=== PATIENT | female | born 1970 | race Caucasian/White ===

== ENCOUNTER 2017-04-30 09:02 | Emergency (ER) | payer OTHER ==
[2017-04-30 09:40] VITALS: BP 130/72
--- NOTE | 2017-04-30 10:20 | UC ---
Respiratory Complaint HPI - HPI Summary HPI Summary: cough x 1 week + chest congestion , wheezing , + nasal congestion and bilateral ear pain no fever, no chills, no sob - History of Current Complaint Chief Complaint: UCRespiratory Stated Complaint: COUGH WHEEZY Time Seen by Provider: 04/30/17 10:12 Hx Obtained From: Patient Hx Last Menstrual Period: now ?: No Onset/Duration: Gradual Onset, Lasting Days - 7, Still Present Timing: Constant Severity Initially: Moderate Severity Currently: Moderate Character: Cough: Nonproductive Aggravating Factors: Exertion, Deep Breaths Alleviating Factors: Nothing Associated Signs And Symptoms: Positive: Wheezing, URI, Nasal Congestion. Negative: Fever, Chills, Pleuritic Chest Pain, Dizziness, Calf Pain, Calf Swelling, Edema, Hoarseness - Allergies/Home Medications Allergies/Adverse Reactions: Allergies Allergy/AdvReac Type Severity Reaction Status Date / Time Azithromycin [From Zithromax] Allergy Intermediate Rash Verified 04/30/17 09:40 Iodine Allergy Intermediate Rash Verified 04/30/17 09:40 Penicillins Allergy Intermediate Rash Verified 04/30/17 09:40 Ciprofloxacin [From Cipro] Allergy Rash Verified 04/30/17 09:40 avoids NSAIDS AdvReac See Comment Uncoded 04/30/17 09:44 PMH/Surg Hx/FS Hx/Imm Hx Respiratory History: Asthma - Surgical History Surgical History: Yes Surgery Procedure, Year, and Place: tubal ligation 2003 - Family History Known Family History: Positive: Hypertension, Diabetes - Social History Alcohol Use: None Substance Use Type: None Smoking Status (MU): Light Every Day Tobacco Smoker Type: Cigarettes Amount Used/How Often: 1/2 PPD Length of Time of Smoking/Using Tobacco: 29 Years Have You Smoked in the Last Year: Yes Household Exposure Type: Cigarettes Review of Systems Constitutional: Negative Skin: Negative Eyes: Negative ENT: Ear Ache, Nasal Discharge Respiratory: Cough Cardiovascular: Negative Is Patient Immunocompromised?: No All Other Systems Reviewed And Are Negative: Yes Physical Exam Triage Information Reviewed: Yes Appearance: Well-Appearing, No Pain Distress, Well-Nourished Vital Signs: Initial Vital Signs Temp 97.9 F 04/30/17 09:32 Pulse 86 04/30/17 09:32 Resp 18 04/30/17 09:32 BP 130/72 04/30/17 09:32 Pulse Ox 98 04/30/17 09:32 Vital Signs Reviewed: Yes Eyes: Positive: Conjunctiva Clear ENT: Positive: Normal ENT inspection, Hearing grossly normal, Nasal congestion, TMs normal Neck: Positive: Supple, Nontender, No Lymphadenopathy Respiratory: Positive: Chest non-tender, Wheezing Cardiovascular: Positive: RRR, No Murmur, Pulses Normal Abdominal Exam: Normal Abdomen Description: Positive: Nontender, Soft. Negative: Distended, Guarding Bowel Sounds: Positive: Present Skin Exam: Normal UC Diagnostic Evaluation - Laboratory O2 Sat by Pulse Oximetry: 98 Respiratory Course/Dx - Differential Dx/Diagnosis Provider Diagnoses: Bronchitis Discharge - Discharge Plan Condition: Stable Disposition: HOME Prescriptions: Albuterol HFA INHALER* [Ventolin HFA Inhaler*] 2 puff INH Q6H PRN #1 mdi PRN Reason: Wheezing Benzonatate [TESSALON 200 MG CAP] 200 mg PO Q8H #21 cap predniSONE TAB* [Deltasone TAB*] 40 mg PO DAILY #10 tab Patient Education Materials: Acute Bronchitis (ED) Referrals: Adam Sanchez MD [Primary Care Provider] - If Needed
== END 2017-04-30 10:28 | disposition home or self-care (01) ==
LOC: UCCORT 09:02
DX: J40 Bronchitis, not specified as acute or chronic (principal); F17.210 Nicotine dependence, cigarettes, uncomplicated; Z88.1 Allergy status to other antibiotic agents; Z88.0 Allergy status to penicillin; Z91.048 Other nonmedicinal substance allergy status
CPT/HCPCS: 99212; G0463

== ENCOUNTER 2017-06-25 15:21 | Emergency (ER) | payer OTHER ==
[2017-06-25 16:07] VITALS: BP 126/67
--- NOTE | 2017-06-25 17:24 | UC ---
Throat Pain/Nasal Charles HPI - HPI Summary HPI Summary: ONE WEEK OF SINUS CONGESTION, COUGH AND WHEEZING. FEVER. - History of Current Complaint Hx Obtained From: Patient Hx Last Menstrual Period: 06/25/17 Onset/Duration: Gradual Onset, Lasting Weeks Severity: Moderate Pain Intensity: 2 Pain Scale Used: 0-10 Numeric Cough: Nonproductive Associated Signs & Symptoms: Positive: Hoarseness, Sinus Discomfort, Nasal Discharge, Fever - Epiglottits Risk Factors Epiglottis Risk Factors: Negative <Liu Topete - Last Filed: 06/25/17 17:19> <Tg Hodge - Last Filed: 06/25/17 17:39> - History of Current Complaint Chief Complaint: UCGeneralIllness Stated Complaint: [place]EN GLANDS, SINUS CONGESTION Time Seen by Provider: 06/25/17 16:24 - Allergies/Home Medications Allergies/Adverse Reactions: Allergies Allergy/AdvReac Type Severity Reaction Status Date / Time Azithromycin [From Zithromax] Allergy Intermediate Rash Verified 06/25/17 15:57 Iodine Allergy Intermediate Rash Verified 06/25/17 15:57 Penicillins Allergy Intermediate Rash Verified 06/25/17 15:57 Ciprofloxacin [From Cipro] Allergy Rash Verified 06/25/17 15:57 avoids NSAIDS AdvReac See Comment Uncoded 06/25/17 15:57 Home Medications: Home Medications Sertraline HCl [Zoloft] 75 mg PO DAILY 06/25/17 [History Confirmed 06/25/17] PMH/Surg Hx/FS Hx/Imm Hx Previously Healthy: Yes - Surgical History Surgical History: Yes Surgery Procedure, Year, and Place: tubal ligation 2003 - Family History Known Family History: Positive: Hypertension, Diabetes - Social History Occupation: Works From/At Home Lives: With Family Alcohol Use: None Substance Use Type: None Smoking Status (MU): Light Every Day Tobacco Smoker Type: Cigarettes Amount Used/How Often: 1/2 PPD Length of Time of Smoking/Using Tobacco: 29 Years Have You Smoked in the Last Year: Yes Household Exposure Type: Cigarettes Cessation Counseling: Patient Advised to Stop - Immunization History Most Recent Influenza Vaccination: 2015 <Liu Topete - Last Filed: 06/25/17 17:19> Review of Systems Constitutional: Fever Skin: Negative Eyes: Negative ENT: Sinus Congestion, Sinus Pain/Tenderness Respiratory: Cough Cardiovascular: Negative Gastrointestinal: Negative Genitourinary: Negative Motor: Negative Neurovascular: Negative Musculoskeletal: Negative Neurological: Negative Psychological: Negative Is Patient Immunocompromised?: No All Other Systems Reviewed And Are Negative: Yes <Liu Topete - Last Filed: 06/25/17 17:19> Physical Exam Triage Information Reviewed: Yes Appearance: Well-Appearing, No Pain Distress, Well-Nourished Vital Signs: Initial Vital Signs Temp 99 F 06/25/17 16:00 Pulse 102 06/25/17 16:00 Resp 20 06/25/17 16:00 BP 126/67 06/25/17 16:00 Pulse Ox 98 06/25/17 16:00 Vital Signs Reviewed: Yes Eye Exam: Normal ENT: Positive: Pharynx normal, TM bulging, TM dull Dental Exam: Normal Neck exam: Normal Neck: Positive: Supple, Nontender Respiratory Exam: Other - COUGH Respiratory: Positive: Chest non-tender, Normal breath sounds, No accessory muscle use, Wheezing Cardiovascular Exam: Normal Cardiovascular: Positive: RRR, No Murmur, Pulses Normal Abdominal Exam: Normal Musculoskeletal Exam: Normal Musculoskeletal: Positive: Strength Intact, ROM Intact Neurological Exam: Normal Psychological Exam: Normal Skin Exam: Normal <Liu Topete - Last Filed: 06/25/17 17:19> Vital Signs: Initial Vital Signs Temp 99 F 06/25/17 16:00 Pulse 102 06/25/17 16:00 Resp 20 06/25/17 16:00 BP 126/67 06/25/17 16:00 Pulse Ox 98 06/25/17 16:00 <Tg Hodge - Last Filed: 06/25/17 17:39> Throat Pain/Nasal Course/Dx - Differential Dx/Diagnosis Differential Diagnosis/HQI/PQRI: Sinusitis, URI Provider Diagnoses: SINUSITIS; BRONCHITIS <Liu Topete - Last Filed: 06/25/17 17:19> Discharge <Liu Topete - Last Filed: 06/25/17 17:19> <Tg Hodge - Last Filed: 06/25/17 17:39> - Discharge Plan Condition: Stable Disposition: HOME Prescriptions: Albuterol HFA INHALER* [Ventolin HFA Inhaler*] 1 - 2 puff INH Q6H PRN #1 mdi PRN Reason: Wheezing DOXYcycline CAP(*) [DOXYcycline 100MG CAP(*)] 100 mg PO BID #20 cap Patient Education Materials: Sinusitis (ED), Acute Bronchitis (ED) Referrals: Adam Sanchez MD [Primary Care Provider] - Additional Instructions: IN ADDITION TAKE [id number] RANITIDINE DIRECTED , DAILY FOR TEN DAYS Attestation Statement User Type: Provider - I was available for consult. This patient was seen by the JACOBY. The patient was not presented to, seen by, or examined by me. -Roby <Tg Hodge - Last Filed: 06/25/17 17:39>
== END 2017-06-25 16:40 | disposition home or self-care (01) ==
LOC: UCEAST 15:21
DX: J32.9 Chronic sinusitis, unspecified (principal); J40 Bronchitis, not specified as acute or chronic; F17.210 Nicotine dependence, cigarettes, uncomplicated
CPT/HCPCS: 99212; G0463

== ENCOUNTER 2017-06-26 19:45 | Emergency (ER) | payer OTHER ==
[2017-06-26 19:51] VITALS: BP 135/86
--- NOTE | 2017-06-26 21:00 | RAD ---
Indication: Difficulty swallowing. CT of the soft tissues of the neck was performed. There is no evidence of prevertebral soft tissue swelling. Tonsillar pillars are grossly unremarkable. No prevertebral abscess is noted. Submandibular and parotid glands are otherwise unremarkable. Lymph nodes are noted along the carotid chain measuring up to 12 mm on the right and 9 mm on the left. The lung apices are otherwise unremarkable. IMPRESSION: No evidence of prevertebral soft tissue swelling or abscess is noted.
--- NOTE | 2017-06-26 21:40 | ED ---
Neck Pain - HPI Summary HPI Summary: 47 YO F WITH DX SINUSITIS, ON DOXYCYCLINE X 1 DAY WITH C/O SORE THROAT/PAIN WITH SWALLOWING. THE LOCATION OF THE PAIN IS LOWER ANTERIOR MID LINE NECK. NO SOB. VOICE MILDLY HOARSE. - History of Current Complaint Chief Complaint: UCRespiratory Stated Complaint: THROAT PAIN Time Seen by Provider: 06/26/17 20:02 Hx Obtained From: Patient, Family/Whiskey Regauger Hx Last Menstrual Period: NOW Onset/Duration Of Injury/Symptoms: Days Timing: Constant Onset/Duration: Started days ago Severity Initially: Mild Severity Currently: Moderate Location: Discrete At: - LOWER MID LINE ANTERIOR THROAT Aggravating Factors: Other: - SWALLOWING Related History: Other - ALSO HAS ACTIVE GERD SX - Allergies/Home Medications Allergies/Adverse Reactions: Allergies Allergy/AdvReac Type Severity Reaction Status Date / Time Azithromycin [From Zithromax] Allergy Intermediate Rash Verified 06/26/17 19:51 Iodine Allergy Intermediate Rash Verified 06/26/17 19:51 Penicillins Allergy Intermediate Rash Verified 06/26/17 19:51 Ciprofloxacin [From Cipro] Allergy Rash Verified 06/26/17 19:51 avoids NSAIDS AdvReac See Comment Uncoded 06/25/17 15:57 Home Medications: Home Medications Ranitidine TAB (NF) [Zantac TAB (NF)] 150 mg PO DAILY 06/26/17 [History Confirmed 06/26/17] PMH/Surg Hx/FS Hx/Imm Hx Endocrine/Hematology History: Denies: Other Endocrine/Hematological Disorders Cardiovascular History: Denies: Hx Hypertension, Other Cardiovascular Problems/Disorders Respiratory History: Reports: Hx Asthma Denies: Other Respiratory Problems/Disorders GI History: Denies: Other GI Disorders History: Denies: Other Problems/Disorders Musculoskeletal History: Denies: Other Musculoskeletal History Sensory History: Denies: Other Sensory Impairments Opthamlomology History: Denies: Other Sensory Impairments Neurological History: Denies: Other Neuro Impairments/Disorders Psychiatric History: Reports: Hx Anxiety, Hx Depression, Hx Panic Disorder Denies: Other Psychiatric Issues/Disorders - Surgical History Surgery Procedure, Year, and Place: 3 C-SECTIONS, TUBAL LIGATION 2003 Infectious Disease History: No Infectious Disease History: Denies: History Other Infectious Disease, Traveled Outside the [place] in Last 30 Days - Family History Known Family History: Positive: Hypertension, Diabetes - Social History Alcohol Use: None Substance Use Type: Reports: None Smoking Status (MU): Current Every Day Smoker Type: Cigarettes Amount Used/How Often: 1/2 PPD Length of Time of Smoking/Using Tobacco: 29 Years Have You Smoked in the Last Year: Yes Review of Systems Positive: Other - SINUSITIS Eyes: Negative Positive: Sore Throat Cardiovascular: Negative Respiratory: Negative Genitourinary: Negative Musculoskeletal: Negative Skin: Negative Neurological: Negative Psychological: Normal All Other Systems Reviewed And Are Negative: Yes Physical Exam Triage Information Reviewed: Yes Vital Signs On Initial Exam: Initial Vitals Temp Pulse Resp BP Pulse Ox 97.7 F 120 16 135/86 97 06/26/17 19:46 06/26/17 19:46 06/26/17 19:46 06/26/17 19:46 06/26/17 19:46 Vital Signs Reviewed: Yes Appearance: Positive: Well-Appearing, Pain Distress - MILD WITH SWALLOWING Skin: Positive: Warm, Skin Color Reflects Adequate Perfusion Head/Face: Positive: Normal Head/Face Inspection Eyes: Positive: Normal, EOMI, JT ENT: Positive: Pharyngeal erythema, Nasal congestion, Other - OROPHARYX OPEN Neck: Positive: Supple, Enlarged Nodes @ - ANTERIOR, Other: - MILDLY TENDER LOWER MIDLINE OF NECK. NO MASS PALPATED Respiratory/Lung Sounds: Positive: Clear to Auscultation Cardiovascular: Positive: Normal, Tachycardia Abdomen Description: Positive: Nontender Musculoskeletal: Positive: Normal Neurological: Positive: Normal Psychiatric: Positive: Normal AVPU Assessment: Alert Diagnostics - Vital Signs Vital Signs Temp Pulse Resp BP Pulse Ox 06/26/17 19:46 97.7 F 120 16 135/86 97 - Laboratory Lab Results: Lab Results 06/26/17 Range/Units 19:46 Group A Strep Rapid Negative (Negative) Lab Statement: Any lab studies that have been ordered have been reviewed, and results considered in the medical decision making process. Neck Course/Dx - Course Course Of Treatment: TWO POSSIBLE CAUSES OF THE PAIN MAY BE FROM THE SINUS INFECTION OR GERD. PATIENT ON DOXY FOR SINUSITIS. ON PPI AND RANITIDINE FOR GERD. WILL ADD CARAFATE. RECOMMENDED COUGH MEDICATION FOR COUGH. DISCUSSED RESULTS WITH PATIENT. F/U PMD; RETURN IF WORSE. - Diagnoses Provider Diagnoses: Neck pain, Cough Discharge - Discharge Plan Condition: Stable Disposition: HOME Prescriptions: Sucralfate TAB* [Carafate*] 1 gm PO QID #60 tab Patient Education Materials: Dextromethorphan (By mouth), Pharyngitis (ED) Referrals: Adam Sanchez MD [Primary Care Provider] - Additional Instructions: FOLLOW UP WITH YOUR DOCTOR. TRY A COUGH SUPPRESSANT SUCH ROBITUSSIN DM. GET RECHECKED FOR ANY WORSENING OF YOUR CONDITION; DIFFICULTY SWALLOWING OR BREATHING OR QUESTIONS OR CONCERNS.
== END 2017-06-26 21:47 | disposition home or self-care (01) ==
LOC: UCEAST 19:45
DX: M54.2 Cervicalgia (principal); R05 Cough; J02.9 Acute pharyngitis, unspecified; J45.909 Unspecified asthma, uncomplicated; Z88.1 Allergy status to other antibiotic agents; Z88.0 Allergy status to penicillin; F41.0 Panic disorder [episodic paroxysmal anxiety]; F32.9 Major depressive disorder, single episode, unspecified; F17.210 Nicotine dependence, cigarettes, uncomplicated
CPT/HCPCS: 70490; 87651; 99212; G0463

== ENCOUNTER 2018-03-03 15:01 | Emergency (ER) | payer OTHER ==
[2018-03-03 15:19] VITALS: BP 131/79
--- NOTE | 2018-03-03 15:45 | UC ---
Cardiac HPI - HPI Summary HPI Summary: The pt is a 47 y/o female presenting to c/o CP since 2 days ago. The CP is rated 9/10 in severity at its worst and radiates to the L arm. She notes nausea and burning epigastric pain that radiates to the chest and under the L breast. She also reports flatulence, and lower back pain (1 night ago.) The pt denies dysuria and melena . She has a PMHx GERD and borderline HLD for which she takes fish oil but denies MHx of HTN or DM. This is scribe Kim Kapoor documenting for attending Dr. Howard Alford.I , Dr. Howard Alford personally performed the services described in this documentation as scribed in my presence and it is both accurate and complete. - History of Current Complaint Chief Complaint: UCChestPain Stated Complaint: ABDOMINAL PAIN Time Seen by Provider: 03/03/18 15:28 Hx Obtained From: Patient Hx Last Menstrual Period: 03/01/18 Onset/Duration: Lasting Days - 2 days, Still Present Initial Severity: Severe Current Severity: Severe Pain Intensity: 9 Associated Signs & Symptoms: Positive: Negative, Chest Pain, Nausea/Vomiting - Positive: Nausea, Back Pain - Lower back pain 1 day ago - Allergy/Home Medications Allergies/Adverse Reactions: Allergies Allergy/AdvReac Type Severity Reaction Status Date / Time azithromycin Allergy Rash Verified 03/03/18 15:27 ciprofloxacin Allergy Rash Verified 03/03/18 15:27 iodine Allergy Rash Verified 03/03/18 15:27 Penicillins Allergy Rash Verified 03/03/18 15:27 avoids NSAIDS AdvReac See Comment Uncoded 03/03/18 15:27 Home Medications: Home Medications Acetaminophen [Extra Strength Non-Aspirin] 1,000 mg PO Q6H PRN 03/03/18 [ History Confirmed 03/03/18] [place]-3 Fatty Acids/Fish Oil [Fish Oil 1200 mg] 1 cap PO DAILY 03/03/18 [ History Confirmed 03/03/18] Vit B Cplx C No.13/Folic AC/D3 [Nephrocaps Qt] 1 tab PO DAILY 03/03/18 [History Confirmed 03/03/18] PMH/Surg Hx/FS Hx/Imm Hx Previously Healthy: No - Denies PMHx of HTN and DM Endocrine History: Dyslipidemia - Borderline HLD GI/ History: Gastroesophageal Reflux - Takes medication for it - Surgical History Surgical History: Yes Surgery Procedure, Year, and Place: 3 C-SECTIONS, TUBAL LIGATION 2003 - Family History Known Family History: Positive: Hypertension, Diabetes - Social History Occupation: Unemployed Lives: With Family Alcohol Use: None Substance Use Type: None Smoking Status (MU): Light Every Day Tobacco Smoker Type: Cigarettes Amount Used/How Often: 1/2 PPD Length of Time of Smoking/Using Tobacco: 29 Years Have You Smoked in the Last Year: Yes Household Exposure Type: Cigarettes - Immunization History Most Recent Influenza Vaccination: 2016 Review of Systems Constitutional: Negative - Fever Respiratory: Other - Positive: Chest pain Gastrointestinal: Abdominal Pain - Epigastric pain, Nausea, Other - Positive: Flatulance Genitourinary: Negative - Dysuria, Melena Musculoskeletal: Other: - Positive: Lower back pain All Other Systems Reviewed And Are Negative: Yes Physical Exam - Summary Physical Exam Summary: General: well-appearing, no pain distress Skin: warm, color reflects adequate perfusion, dry Head: normal Eyes: EOMI, JT ENT: normal Neck: supple, nontender Respiratory: CTA, breath sounds present Cardiovascular: RRR Abdomen: soft, mild tenderness to palpation in the epigastrium Bowel: present Musculoskeletal: normal, strength/ROM intact, no edema Neurological: sensory/motor intact, A&O x3 Psychological: affect/mood appropriate Triage Information Reviewed: Yes Vital Signs: Initial Vital Signs Temp 97.7 F 03/03/18 15:12 Pulse 101 03/03/18 15:12 Resp 16 03/03/18 15:12 BP 131/79 03/03/18 15:12 Pulse Ox 97 03/03/18 15:12 Vital Signs Reviewed: Yes Diagnostics - EKG EKG Comments: 15:49 Cardiac Rate: NL - 85 bpm Cardiac Rhythm: Sinus: Normal Ectopy: None ST Segment: Normal Re-Evaluation - Re-Evaluation First Eval Re-Evaluation Time: 16:30 Change: Improved - The patient was advised to visit the emergency department for follow up. The patient is agreeable with this plan. - Assessment/Plan Course Of Treatment: EKG did not show any ischemic changes. I recommended the patient go to the emergency department for further evaluation now for her chest pain and upper abdominal pain. - Clinical Impression Provider Diagnoses: Chest pain. Upper abdominal pain Discharge - Sign-Out/Discharge Documenting (check all that apply): Patient Departure - Discharge Plan Condition: Stable Disposition: HOME-RECOMMEND TO ED Patient Education Materials: Chest Pain (ED), Acute Abdominal Pain (ED) Referrals: Adam Sanchez MD [Primary Care Provider] - Additional Instructions: GO DIRECTLY TO THE EMERGENCY DEPARTMENT FOR FURTHER EVALUATION OF YOUR CHEST AND ABDOMINAL PAIN. - Billing Disposition and Condition Condition: STABLE Disposition: Home-Recommend to ED
== END 2018-03-03 16:13 | disposition home health service (06) ==
LOC: UCEAST 15:01
DX: R07.89 Other chest pain (principal); R10.13 Epigastric pain; K21.9 Gastro-esophageal reflux disease without esophagitis; Z88.6 Allergy status to analgesic agent; Z88.1 Allergy status to other antibiotic agents; Z88.3 Allergy status to other anti-infective agents; Z88.0 Allergy status to penicillin; Z82.49 Family history of ischemic heart disease and other diseases of the circulatory system; Z83.3 Family history of diabetes mellitus; F17.210 Nicotine dependence, cigarettes, uncomplicated
CPT/HCPCS: 93005; 99211; G0463

== ENCOUNTER → 2018-03-03 17:41 | Emergency (ER) | payer OTHER ==
[~2018-03-03 17:41] MED LIST: Al Hydrox/Mg Hydrox/Simet LIQ* 30 ML UDC PO ONE; Famotidine TAB* 20 MG PO ONE; Lidocaine 2% VISCOUS* 15 ML UDC PO ONE; Nitrofurantoin Macrocrystals* 100 MG CAP PO ONE
[2018-03-03 18:31] LABS: ABS Basophils 0.1 10^3/ul (0-0.2); ABS Eosinophils 0.2 10^3/ul (0-0.6); ABS Monocytes 0.7 10^3/ul (0-0.8); ABS Neutrophils 5.8 10^3/ul (1.5-7.7); ABS Nucleated RBC 0 10^3/ul; Eosinophil % 2.1 % (0-6); Hematocrit 37 % (35-47); Hemoglobin 12.8 g/dl (12.0-16.0); Lymphocyte % 30.4 % (25-47); Mean Corpuscular HGB Conc 35 g/dl (31-36); Mean Corpuscular Hemoglobin 33 pg (27-31); Mean Corpuscular Volume 95 fL (80-97); Mean Platelet Volume 7.6 um3 (7.4-10.4); Nucleated Red Blood Cells % 0; Platelet Count 425 10^3/ul (150-450); Red Blood Count 3.86 10^6/ul (4.00-5.40); Red Cell Distribution Width 14 % (10.5-15); White Blood Count 9.7 10^3/ul (3.5-10.8)
--- NOTE | 2018-03-03 18:32 | ED ---
Abdominal Pain/Female - HPI Summary HPI Summary: This is scribe Zane Sun documenting for attending Sarath Rosado MD. This patient is a 47 year old F presenting to [facility] with a chief complaint of a burning abdominal pain since 2 days ago. She describes it as a weird sensation like a filling feeling that starts in her abdomen, radiating up her chest and down her LUE. The patient rates the pain 5/10 in severity currently. It was a 9/10 in severity at its worse. Patient reports frequent flatulence and pain under my L breast bone. Patient denies nausea, vomiting, diarrhea, and constipation. Patient has a PMHx of HLD but no PMHx of HTN or diabetes. She smokes but does not drink alcohol. She has a PSHx of a . I, Dr. Rosado, personally performed the services described in this documentation as scribed in my presence, and it is both accurate and complete. - History of Current Complaint Chief Complaint: EDChestPainROMI Stated Complaint: ABD/CHEST PAIN Time Seen by Provider: 03/03/18 18:01 Hx Obtained From: Patient Hx Last Menstrual Period: 03/01/18 Onset/Duration: Sudden Onset, Lasting Days - 2 days ago, Still Present Timing: Days - since 2 days ago Severity Initially: Severe Severity Currently: Moderate Pain Intensity: 5 Pain Scale Used: 0-10 Numeric Radiates: Yes Radiates to: Other - radiating up her chest and down her LUE Character: Burning Aggravating Factor(s): Nothing Alleviating Factor(s): Nothing Associated Signs and Symptoms: Positive: Chest Pain, Other: - Frequent flatulence, pain "under my L breast bone". Negative: Constipation, Nausea, Vomiting, Diarrhea Allergies/Adverse Reactions: Allergies Allergy/AdvReac Type Severity Reaction Status Date / Time azithromycin Allergy Rash Verified 03/03/18 15:27 ciprofloxacin Allergy Rash Verified 03/03/18 15:27 iodine Allergy Rash Verified 03/03/18 15:27 Penicillins Allergy Rash Verified 03/03/18 15:27 avoids NSAIDS AdvReac See Comment Uncoded 03/03/18 15:27 Home Medications: Home Medications Albuterol HFA INHALER* [Ventolin HFA Inhaler*] 1 - 2 puff INH Q6H PRN 03/03/18 [ History Confirmed 03/03/18] Pantoprazole TAB (NF) [Protonix TAB (NF)] 40 mg PO QAM 03/03/18 [History Confirmed 03/03/18] Sertraline* [Zoloft*] 100 mg PO DAILY 03/03/18 [History Confirmed 03/03/18] busPIRone TAB* [Buspar TAB *] 15 mg PO QID 03/03/18 [History Confirmed 03/03/18] PMH/Surg Hx/FS Hx/Imm Hx Endocrine/Hematology History: Denies: Hx Thyroid Disease, Other Endocrine/Hematological Disorders Cardiovascular History: Denies: Hx Hypertension, Other Cardiovascular Problems/Disorders Respiratory History: Reports: Hx Asthma Denies: Other Respiratory Problems/Disorders GI History: Denies: Other GI Disorders Comment Only: Hx Ulcer - possible History: Denies: Other Problems/Disorders Musculoskeletal History: Denies: Other Musculoskeletal History Sensory History: Denies: Other Sensory Impairments Opthamlomology History: Denies: Other Sensory Impairments Neurological History: Denies: Other Neuro Impairments/Disorders Psychiatric History: Reports: Hx Anxiety, Hx Depression, Hx Panic Disorder Denies: Other Psychiatric Issues/Disorders - Surgical History Surgery Procedure, Year, and Place: 3 C-SECTIONS, TUBAL LIGATION 2003 Infectious Disease History: No Infectious Disease History: Denies: History Other Infectious Disease, Traveled Outside the [place] in Last 30 Days - Family History Known Family History: Positive: Hypertension, Diabetes - Social History Occupation: Unemployed Lives: With Family Alcohol Use: Rare Substance Use Type: Reports: None Smoking Status (MU): Light Every Day Tobacco Smoker Type: Cigarettes Amount Used/How Often: 1/2 PPD Length of Time of Smoking/Using Tobacco: 29 Years Have You Smoked in the Last Year: Yes Review of Systems Positive: Chest Pain - Pain "under my L breast bone" Positive: Abdominal Pain - A burning abdominal pain since 2 days ago. It is a weird sensation like a filling feeling that starts in her abdomen, radiating up her chest and down her LUE., Other - Frequent flatulence. Denies constipation.. Negative: Vomiting, Diarrhea, Nausea All Other Systems Reviewed And Are Negative: Yes Physical Exam - Summary Physical Exam Summary: VITAL SIGNS: Reviewed. GENERAL: Patient is a well-developed and nourished FEMALE who is lying comfortable in the stretcher. Patient is not in any acute respiratory distress. HEAD AND FACE: No signs of trauma. No ecchymosis, hematomas or skull depressions. No sinus tenderness. EYES: PERRLA, EOMI x 2, No injected conjunctiva, no nystagmus. EARS: Hearing grossly intact. Ear canals and tympanic membranes are within normal limits. MOUTH: Oropharynx within normal limits. NECK: Supple, trachea is midline, no adenopathy, no JVD, no carotid bruit, no c- spine tenderness, neck with full ROM. CHEST: Symmetric, no tenderness at palpation LUNGS: Clear to auscultation bilaterally. No wheezing or crackles. CVS: Regular rate and rhythm, S1 and S2 present, no murmurs or gallops appreciated. ABDOMEN: Epigastric tenderness. No signs of distention. No rebound no guarding, and no masses palpated. Bowel sounds are normal. EXTREMITIES: FROM in all major joints, no edema, no cyanosis or clubbing. NEURO: Alert and oriented x 3. No acute neurological deficits. Speech is normal and follows commands. SKIN: Dry and warm Triage Information Reviewed: Yes Vital Signs On Initial Exam: Initial Vitals Temp Pulse Resp BP Pulse Ox 98.9 F 110 16 122/82 94 03/03/18 17:57 03/03/18 17:57 03/03/18 17:57 03/03/18 17:57 03/03/18 17:57 Vital Signs Reviewed: Yes Diagnostics - Vital Signs Vital Signs Temp Pulse Resp BP Pulse Ox 03/03/18 18:05 93 120/75 96 03/03/18 17:57 98.9 F 110 16 122/82 94 - Laboratory Lab Results: Lab Results 03/03/18 Range/Units 18:22 WBC 9.7 (3.5-10.8) 10^3/ul RBC 3.86 L (4.00-5.40) 10^6/ul Hgb 12.8 (12.0-16.0) g/dl Hct 37 (35-47) % MCV 95 (80-97) fL MCH 33 H (27-31) pg MCHC 35 (31-36) g/dl RDW 14 (10.5-15) % Plt Count 425 (150-450) 10^3/ul MPV 7.6 (7.4-10.4) um3 Neut % (Auto) 59.5 (38-83) % Lymph % (Auto) 30.4 (25-47) % Louisa % (Auto) 7.1 H (0-7) % Eos % (Auto) 2.1 (0-6) % Baso % (Auto) 0.9 (0-2) % Absolute Neuts (auto) 5.8 (1.5-7.7) 10^3/ul Absolute Lymphs (auto) 3.0 (1.0-4.8) 10^3/ul Absolute Monos (auto) 0.7 (0-0.8) 10^3/ul Absolute Eos (auto) 0.2 (0-0.6) 10^3/ul Absolute Basos (auto) 0.1 (0-0.2) 10^3/ul Absolute Nucleated RBC 0 10^3/ul Nucleated RBC % 0 Result Diagrams: 03/03/18 18:22 03/03/18 18:21 Lab Statement: Any lab studies that have been ordered have been reviewed, and results considered in the medical decision making process. - Radiology Abdomen X-Ray Radiology Interpretation Completed By: Radiologist - 19:06. CHOLELITHIASIS. ED Physician has reviewed this imaging report. - CT Abdominal US CT Interpretation Completed By: Radiologist - 21:09. Cholelithiasis without other findings of cholecystitis. ED Physician has reviewed this imaging report. - EKG No standard instances Cardiac Rate: NL - 92 EKG Rhythm: Sinus Rhythm EKG Interpretation: Read 18:20. No ST elevations. Similar to EKG from 11/17/2014 Abdominal Pain Fem Course/Dx - Course Course Of Treatment: This patient is a 47-year-old female who presents to the emergency department with a chief complaint of having epigastric burning with relation to the chest and left upper extremity. She reports that the symptoms started a couple days ago and has become worse therefore she decided to come to the emergency room for further workup and management. Patient has past medical history significant for dyslipidemia on Sharon 3, GERD, depression, and asthma. In the ED the patient was given IV fluids and a GI cocktail. After giving these medications the symptoms have improved. Test results without any significant abnormality. EKG shows no ST elevation. Abdomen x-ray impression: Cholelithiasis. Right upper quadrant ultrasound IMPRESSION: 1. Cholelithiasis without other findings of cholecystitis. Urinalysis positive for UTI. The patient was given nitrofurantoin. At this time the patient is given better therefore the patient will be discharged home with follow-up with PCP. I discussed all the findings and test results with the patient. Patient was instructed to return to the emergency room immediately if any of the symptoms return or worsens. Plan of care was discussed with the patient and understands and agrees. All questions were answered at patient satisfaction. There were no further complaints or concerns. Lung exam before discharge: CTA B/L. Good air exchange. No wheezing or crackles heard. CVS: S1 and S2 present. No murmurs appreciated. Patient is alert and oriented x 3. Patient is hemodynamically stable. Patient will be discharged home with follow up PCP in the next 2-3 days - Diagnoses Provider Diagnoses: Epigastric pain, Cholelithiases, UTI (urinary tract infection) Discharge - Sign-Out/Discharge Documenting (check all that apply): Patient Departure - D/C - Discharge Plan Condition: Stable Disposition: HOME Prescriptions: Nitrofurantoin Macrocrystals* [Macrodantin 100 mg*] 100 mg PO BID #20 cap Patient Education Materials: Biliary Colic (ED), Urinary Tract Infection in Women (ED), Epigastric Pain (ED) Referrals: Adam Sanchez MD [Primary Care Provider] - 3 Days Cristopher Byrd MD [Medical Doctor] - (Follow up with Dr. Byrd within 1 week.) Additional Instructions: RETURN TO THE ED FOR ANY WORSENING OR NEW SYMPTOMS.
--- NOTE | 2018-03-03 19:09 | RAD ---
INDICATION: Abdominal pain COMPARISON: None TECHNIQUE: Erect and supine views of the abdomen are submitted. FINDINGS: Bones: There are no acute bony findings. Soft tissues: The soft tissues appear normal. The psoas margins are sharp. Bowel gas pattern: Normal Calcifications: There are numerous gallstones. Other: None IMPRESSION: CHOLELITHIASIS
[2018-03-03 20:49] LABS: Urine Color Red
[2018-03-03 21:07] LABS: Urine Appearance Cloudy; Urine Blood 3+ (Negative); Urine Ketones Negative (Negative); Urine Protein 2+(100 mg/dL) (Negative); Urine Red Blood Cell 3+(>10/hpf) (Absent); Urine Specific Gravity 1.012 (1.010-1.030); Urine Urobilinogen Negative (Negative); Urine White Blood Cell 3+(>20/hpf) (Absent)
--- NOTE | 2018-03-03 21:09 | RAD ---
EXAM: US Abdomen Limited, Right Upper Quadrant CLINICAL HISTORY: 47 years old, female; Abnormal findings; Abnormal radiologic finding of the abdomen; Radiologic exam and body structure: Abd xray; Additional info: Epigastric pain TECHNIQUE: Real-time ultrasound of the right upper quadrant with image documentation. COMPARISON: No relevant prior studies available. FINDINGS: Liver: The liver is normal in size and increased in echogenicity most consistent with fatty infiltration. There is focal sparing adjacent to the gallbladder. Gallbladder: Multiple gallstones are present. Technologist reports no patient pain when imaged over the gallbladder. Gallbladder wall thickness measures 3 mm. Common bile duct: Common bile duct measures 4 mm. No stones. No dilation. Pancreas: Normal as visualized. Right kidney: Right kidney measures 10.9 x 4.0 x 5.4 cm. No stones. No hydronephrosis. Aorta: Normal. Inferior vena cava: Normal. IMPRESSION: 1. Cholelithiasis without other findings of cholecystitis. 2. Findings suggestive of fatty infiltration of the liver.
[2018-03-03 21:22] LABS: EGFR Non-African American 99.9 (>60)
[2018-03-03 21:57] VITALS: BP 114/60
== END | disposition home or self-care (01) ==
LOC: ED 17:41
DX: K80.20 Calculus of gallbladder without cholecystitis without obstruction (principal); N39.0 Urinary tract infection, site not specified; K21.9 Gastro-esophageal reflux disease without esophagitis; F41.9 Anxiety disorder, unspecified; F32.9 Major depressive disorder, single episode, unspecified; F17.210 Nicotine dependence, cigarettes, uncomplicated; E78.5 Hyperlipidemia, unspecified; J45.909 Unspecified asthma, uncomplicated; Z79.899 Other long term (current) drug therapy; Z88.3 Allergy status to other anti-infective agents; Z88.0 Allergy status to penicillin; Z88.6 Allergy status to analgesic agent; Z88.8 Allergy status to other drugs, medicaments and biological substances
CPT/HCPCS: 36415; 74019; 76705; 80053; 81003; 81015; 83605; 83690; 83880; 84484; 85025; 86140; 87086; 93005; 99283; A9270-GY

== ENCOUNTER 2018-05-19 11:20 | Emergency (ER) | payer OTHER ==
[2018-05-19 11:34] VITALS: BP 127/82
--- NOTE | 2018-05-20 07:50 | UC ---
- Progress Note Progress Note: NO IMAGING Discharge - Sign-Out/Discharge Documenting (check all that apply): Post-Discharge Follow Up All imaging exams completed and their final reports reviewed: No Studies - Discharge Plan Condition: Good Disposition: HOME Prescriptions: Sulfamethox/Trimethoprim DS* [Bactrim DS 800/160 TAB*] 1 tab PO BID #20 tab Patient Education Materials: Cellulitis (ED) Referrals: Adam Sanchez MD [Primary Care Provider] - Additional Instructions: - Warm stiz baths 3+ times a day - Antibitoics as directed - Return with loss of bowel, bladder functions, decreased leg use, increased pain, fever, chills - Motrin/ ibuprofen for pain - Follow up with primary physician within 2-3 days - Billing Disposition and Condition Condition: GOOD Disposition: Home
--- NOTE | 2018-06-09 21:27 | UC ---
Skin Complaint HPI - HPI Summary HPI Summary: 48 y/o female with c/o redness, pain, drainage noted from right side of gluteal cleft, pain increasing over past days, drainage x 24 hours. No fever, chills. + pain with ambulation, no bowel/ bladder dysfunction - History of Current Complaint Chief Complaint: UCGU Time Seen by Provider: 05/19/18 12:18 Stated Complaint: PERSONAL Hx Obtained From: Patient Hx Last Menstrual Period: 03/01/18 Onset/Duration: Sudden Onset, Lasting Days Onset Severity: Moderate Current Severity: Moderate Pain Intensity: 5 Pain Scale Used: 0-10 Numeric - Allergy/Home Medications Allergies/Adverse Reactions: Allergies Allergy/AdvReac Type Severity Reaction Status Date / Time azithromycin Allergy Severe Rash Verified 05/19/18 11:34 ciprofloxacin Allergy Severe Rash Verified 05/19/18 11:34 iodine Allergy Severe Rash Verified 05/19/18 11:34 Penicillins Allergy Severe Rash Verified 05/19/18 11:34 avoids NSAIDS AdvReac See Comment Uncoded 05/19/18 11:34 Review of Systems All Other Systems Reviewed And Are Negative: Yes Constitutional: Positive: Chills Skin: Positive: Other - drainage Gastrointestinal: Positive: Other - pain in buttock area Is Patient Immunocompromised?: No PMH/Surg Hx/FS Hx/Imm Hx Endocrine History: Diabetes - Surgical History Surgical History: Yes Surgery Procedure, Year, and Place: 3 C-SECTIONS, TUBAL LIGATION 2003 - Family History Known Family History: Positive: Hypertension, Diabetes - Social History Alcohol Use: None Substance Use Type: None Smoking Status (MU): Light Every Day Tobacco Smoker Type: Cigarettes Amount Used/How Often: 5 cigs per day for over 20 years Length of Time of Smoking/Using Tobacco: 29 Years Have You Smoked in the Last Year: Yes Household Exposure Type: Cigarettes - Immunization History Most Recent Influenza Vaccination: 2016 Physical Exam Triage Information Reviewed: Yes Appearance: Well-Appearing, No Pain Distress, Well-Nourished Vital Signs: Initial Vital Signs Temp 98.0 F 05/19/18 11:31 Pulse 113 05/19/18 11:31 Resp 18 05/19/18 11:31 BP 127/82 05/19/18 11:31 Pulse Ox 100 05/19/18 11:31 Vital Signs Reviewed: Yes Eyes: Positive: Conjunctiva Clear Abdomen Description: Positive: Nontender, No Organomegaly, Soft Neurological Exam: Normal Skin: Positive: Other - 2x2cm indurated region in gluteal cleft, right sided TTP , white head noted, no drainage, no fluctuant area noted. no involvement with rectum, area marked with skin marker Course/Dx - Course Course Of Treatment: unable to I&D as no abcess seen, abx given, cultures taken , f/u with PCP - Differential Diagnoses - Skin Complaint Differential Diagnoses: Cellulitis, Impetigo - Diagnoses Provider Diagnoses: cellulitis Discharge - Sign-Out/Discharge Documenting (check all that apply): Patient Departure All imaging exams completed and their final reports reviewed: No Studies - Discharge Plan Condition: Good Disposition: HOME Prescriptions: Sulfamethox/Trimethoprim DS* [Bactrim DS 800/160 TAB*] 1 tab PO BID #20 tab Patient Education Materials: Cellulitis (ED) Referrals: Adam Sanchez MD [Primary Care Provider] - Additional Instructions: - Warm stiz baths 3+ times a day - Antibitoics as directed - Return with loss of bowel, bladder functions, decreased leg use, increased pain, fever, chills - Motrin/ ibuprofen for pain - Follow up with primary physician within 2-3 days - Billing Disposition and Condition Condition: GOOD Disposition: Home
== END 2018-05-19 13:00 | disposition home or self-care (01) ==
LOC: UCEAST 11:20
DX: L03.317 Cellulitis of buttock (principal); Z88.6 Allergy status to analgesic agent; Z88.1 Allergy status to other antibiotic agents; Z88.0 Allergy status to penicillin; F17.210 Nicotine dependence, cigarettes, uncomplicated
CPT/HCPCS: 99212; G0463

== ENCOUNTER 2018-08-25 16:40 | Emergency (ER) | payer OTHER ==
[2018-08-25 17:10] VITALS: BP 146/83
[2018-08-25] MEDS ORDERED: Ketorolac INJ* 30 MG/ML 1 ML VIAL IM ONE (17:22)
--- NOTE | 2018-08-30 10:03 | UC ---
Course/Dx - Diagnoses Provider Diagnoses: Dental abscess Discharge - Sign-Out/Discharge Documenting (check all that apply): Post-Discharge Follow Up All imaging exams completed and their final reports reviewed: No Studies - Discharge Plan Condition: Good Disposition: HOME Prescriptions: Clindamycin HCl 300 mg PO TID #30 capsule HYDROcodone/ACETAMIN 5-325 MG* [Guttenberg 5-325 TAB*] 1 tab PO Q4H PRN #15 tab MDD 4 tablets PRN Reason: Pain Patient Education Materials: Dental Abscess (ED) Referrals: Adam Sanchez MD [Primary Care Provider] - Additional Instructions: - Follow up with dentist within 2-3 days for evaluation and further treatment - Continue antibiotics as directed - Warm salt water gargles 3-4 times daily - Tylenol up to 4000mg a day max for pain - Guttenberg as needed for severe pain every 4-6 hours - GO to ER with increased pain, fever, chills, nausea/ vomiting, increased pain , difficulty swallowing - Billing Disposition and Condition Condition: GOOD Disposition: Home
--- NOTE | 2018-09-05 10:20 | UC ---
Dental HPI - HPI Summary HPI Summary: 48 year old female with TOB history presents with swelling, dental pain since this aM. Noted pain, mild, and some swelling last night, woke this mornign with increased swelling on right side of face. no fever, no difficulty with swallowing, breathing. no prior occurence but does have h/o dental infections. - History of Current Complaint Chief Complaint: UCDentalProblem Stated Complaint: SWOLLEN CHEEK Time Seen by Provider: 08/25/18 17:25 Hx Obtained From: Patient Hx Last Menstrual Period: 1 WEEK AGO Pain Intensity: 0 Pain Scale Used: 0-10 Numeric - Allergies/Home Medications Allergies/Adverse Reactions: Allergies Allergy/AdvReac Type Severity Reaction Status Date / Time azithromycin Allergy Severe Rash Verified 08/26/18 12:33 ciprofloxacin Allergy Severe Rash Verified 08/26/18 12:33 iodine Allergy Severe Rash Verified 08/26/18 12:33 Penicillins Allergy Severe Rash Verified 08/26/18 12:33 avoids NSAIDS AdvReac See Comment Uncoded 08/26/18 12:33 Home Medications: Home Medications Cyanocobalamin TAB* [Vitamin B12 TAB*] 1 tab PO DAILY 08/25/18 [History] PMH/Surg Hx/FS Hx/Imm Hx Previously Healthy: No - Surgical History Surgical History: Yes Surgery Procedure, Year, and Place: 3 C-SECTIONS, TUBAL LIGATION 2003, CHOLECYSTECTOMY 2017 - Family History Known Family History: Positive: Hypertension, Diabetes - Social History Alcohol Use: None Substance Use Type: None Smoking Status (MU): Current Every Day Smoker Type: Cigarettes Amount Used/How Often: 5 CIG/DAY Length of Time of Smoking/Using Tobacco: 29 Years Have You Smoked in the Last Year: Yes Household Exposure Type: Cigarettes - Immunization History Most Recent Influenza Vaccination: 2016 Review of Systems All Other Systems Reviewed And Are Negative: Yes ENT: Positive: Dental Pain Musculoskeletal: Positive: Edema Is Patient Immunocompromised?: No Physical Exam Triage Information Reviewed: Yes Appearance: Well-Appearing, No Pain Distress, Well-Nourished Vital Signs: Initial Vital Signs Temp 98.8 F 08/25/18 17:02 Pulse 112 08/25/18 17:02 Resp 16 08/25/18 17:02 BP 146/83 08/25/18 17:02 Pulse Ox 99 08/25/18 17:02 Vital Signs Reviewed: Yes Eyes: Positive: Conjunctiva Clear ENT: Positive: Pharynx normal, TMs normal, Uvula midline. Negative: Pharyngeal erythema, Tonsillar swelling, Tonsillar exudate, Sinus tenderness Dental: Positive: Gross Decay/Caries @ - multiple, Dental Fracture @ - multiple , Cervical Lymphadenopathy - l sided, Other: - erythema noted voer upper left gingiva with no drainage noted, fluctuant area seen at upper outer gingiva Neck: Positive: Supple, Nontender. Negative: Nuchal Rigidity Neurological Exam: Normal Skin: Positive: Other - mid erytheam in mucosa, skin normal, no erythema, wounds Dental Complaint Course/Dx - Course Course Of Treatment: dental abscess, start ABX, discussed drainage however patient hesitent due to pain. f/u with dentist - Differential Dx/Diagnosis Differential Diagnosis/Dx: Dental Abscess, Dental Caries Provider Diagnosis: Dental abscess Discharge - Sign-Out/Discharge Documenting (check all that apply): Patient Departure All imaging exams completed and their final reports reviewed: No Studies - Discharge Plan Condition: Good Disposition: HOME Prescriptions: Clindamycin HCl 300 mg PO TID #30 capsule HYDROcodone/ACETAMIN 5-325 MG* [[place] 5-325 TAB*] 1 tab PO Q4H PRN #15 tab MDD 4 tablets PRN Reason: Pain Patient Education Materials: Dental Abscess (ED) Referrals: Adam Sanchez MD [Primary Care Provider] - Additional Instructions: - Follow up with dentist within 2-3 days for evaluation and further treatment - Continue antibiotics as directed - Warm salt water gargles 3-4 times daily - Tylenol up to 4000mg a day max for pain - [place] as needed for severe pain every 4-6 hours - GO to ER with increased pain, fever, chills, nausea/ vomiting, increased pain , difficulty swallowing - Billing Disposition and Condition Condition: GOOD Disposition: Home
== END 2018-08-25 18:19 | disposition home or self-care (01) ==
LOC: UCEAST 16:40
DX: K04.7 Periapical abscess without sinus (principal); Z88.6 Allergy status to analgesic agent; Z88.1 Allergy status to other antibiotic agents; Z88.3 Allergy status to other anti-infective agents; Z88.0 Allergy status to penicillin; F17.210 Nicotine dependence, cigarettes, uncomplicated
CPT/HCPCS: 99212; G0463; J1885

== ENCOUNTER 2018-08-26 12:16 | Emergency (ER) | payer OTHER ==
[2018-08-26 12:33] VITALS: BP 118/80
--- NOTE | 2018-08-26 13:09 | UC ---
Dental HPI - HPI Summary HPI Summary: 48-year-old female presents with redness and swelling below her right eye. Patient was seen at this facility last evening for a dental abscess at her right upper second molar (#2). She was started on clindamycin 300 mg 3 times a day and prescribed hydrocodone-acetaminophen as needed for severe pain. She states she woke up this morning and noticed some redness and mild swelling beneath her right eye. She has taken a total of 3 doses for clindamycin at this time. She has not scheduled a dental appointment at this time. Denies fever, chills, eye pain, diplopia, blurred vision, photophobia, trismus, dysphagia, or difficulty breathing. - History of Current Complaint Chief Complaint: ROXJaime Stated Complaint: SWOLLEN EYE Time Seen by Provider: 08/26/18 12:49 Hx Obtained From: Patient Hx Last Menstrual Period: 08/18/18 Pain Intensity: 0 - Allergies/Home Medications Allergies/Adverse Reactions: Allergies Allergy/AdvReac Type Severity Reaction Status Date / Time azithromycin Allergy Severe Rash Verified 08/26/18 12:33 ciprofloxacin Allergy Severe Rash Verified 08/26/18 12:33 iodine Allergy Severe Rash Verified 08/26/18 12:33 Penicillins Allergy Severe Rash Verified 08/26/18 12:33 avoids NSAIDS AdvReac See Comment Uncoded 08/26/18 12:33 PMH/Surg Hx/FS Hx/Imm Hx Respiratory History: Asthma GI/ History: Gastroesophageal Reflux Psychological History: Depression - Surgical History Surgical History: Yes Surgery Procedure, Year, and Place: 3 C-SECTIONS, TUBAL LIGATION 2003, CHOLECYSTECTOMY 2018 - Family History Known Family History: Positive: Hypertension, Diabetes - Social History Occupation: Unemployed Lives: With Family Alcohol Use: None Substance Use Type: None Smoking Status (MU): Current Every Day Smoker Type: Cigarettes Amount Used/How Often: 5 CIG/DAY Length of Time of Smoking/Using Tobacco: 29 Years Have You Smoked in the Last Year: Yes Household Exposure Type: Cigarettes - Immunization History Most Recent Influenza Vaccination: 2016 Review of Systems All Other Systems Reviewed And Are Negative: Yes Constitutional: Negative: Fever, Chills Skin: Negative: Rash Eyes: Negative: Blurred Vision, Diplopia, Drainage, Eye Redness, Photophobia ENT: Positive: Dental Pain. Negative: Sore Throat, Ear Ache, Nasal Discharge, Sinus Congestion, Sinus Pain/Tenderness Respiratory: Negative: Shortness Of Breath, Cough Cardiovascular: Negative: Palpitations, Chest Pain Gastrointestinal: Negative: Abdominal Pain, Vomiting, Diarrhea, Nausea Genitourinary: Positive: Negative Musculoskeletal: Positive: Negative Neurological: Positive: Negative Is Patient Immunocompromised?: No Physical Exam - Summary Physical Exam Summary: GENERAL APPEARANCE: Well developed, well nourished, alert and cooperative, and appears to be in no acute distress. HEAD: Atraumatic. normocephalic. Mild right-sided facial swelling. EYES: PERRL, EOM intact. Vision is grossly intact. Conjunctiva clear. No discharge. Mild suborbital erythema. EARS: External auditory canals and tympanic membranes clear, hearing grossly intact. NOSE: No nasal discharge. THROAT: Pharynx normal. No tonsilar inflammation, swelling, exudate, or lesions. Uvula midline. Area of eythema, induration, edema, and flutuance noted at the base of the upper right second molar (#2). No trismus. Airway intact. NECK: Neck supple, non-tender without lymphadenopathy. CARDIAC: Normal S1 and S2. No S3, S4 or murmurs. Rhythm is regular. There is no peripheral edema, cyanosis or pallor. Extremities are warm and well perfused. Capillary refill is less than 2 seconds. LUNGS: Clear to auscultation without rales, rhonchi, wheezing or diminished breath sounds. ABDOMEN: Positive bowel sounds. Soft, nondistended, nontender. No guarding or rebound. No masses or hepatosplenomegally. MUSKULOSKELETAL: ROM intact to all extremities. No joint erythema or tenderness. Normal muscular development. Normal gait. SKIN: Skin normal color, texture and turgor. Triage Information Reviewed: Yes Vital Signs: Initial Vital Signs Temp 97.5 F 08/26/18 12:29 Pulse 117 08/26/18 12:29 Resp 16 08/26/18 12:29 BP 118/80 08/26/18 12:29 Pulse Ox 99 08/26/18 12:29 Vital Signs Reviewed: Yes Dental Complaint Course/Dx - Course Course Of Treatment: 48-year-old female presents with redness and swelling below her right eye. Patient was seen at this facility last evening for a dental abscess at her right upper second molar (#2). She was started on clindamycin 300 mg 3 times a day and prescribed hydrocodone-acetaminophen as needed for severe pain. She states she woke up this morning and noticed some redness and mild swelling beneath her right eye. She has taken a total of 3 doses for clindamycin at this time. She has not scheduled a dental appointment at this time. Denies fever, chills, eye pain, diplopia, blurred vision, photophobia, trismus, dysphagia, or difficulty breathing. Afebrile. Patient is noted to be mildly tachycardic otherwise vital signs stable. Exam reveals an adult female in no acute distress with tenderness, induration, and fluctuance noted at the base of the right upper second molar without discharge, mild right-sided facial swelling, mild suborbital erythema, PERRL, intact extraocular eye movements, no eye redness or drainage is noted. I suspect she has a mild preseptal cellulitis secondary to her dental abscess which should improve with continuation of her antibiotic course. Reviewed with patient concern that if the swelling worsens or she develops eye pain or visual disturbances I would have concern for a orbital cellulitis that would need immediate evaluation in the emergency room. She is to continue with the clindamycin as prescribed as well as symptomatic treatment as previously discussed. She was encouraged to call the dentist today to schedule an appointment at the next available. Anticipatory guidance and warning symptoms that would require immediate evaluation in the emergency room for once again reviewed with the patient. She verbalizes understanding and agrees with plan of care. - Differential Dx/Diagnosis Differential Diagnosis/Dx: Dental Abscess, Dental Caries, Odontogenic Pain, Peridontic Disease, Other - preseptal cellulitis, orbital cellulitis Provider Diagnosis: Dental abscess, Preseptal cellulitis of right eye Discharge - Sign-Out/Discharge Documenting (check all that apply): Patient Departure All imaging exams completed and their final reports reviewed: No Studies - Discharge Plan Condition: Stable Disposition: HOME Patient Education Materials: Dental Abscess (ED), Periorbital Cellulitis in Adults (ED) Referrals: Adam Sanchez MD [Primary Care Provider] - Additional Instructions: Your dental abscess appears to be improving and will likely open and start draining. The swelling beneath your eye is likely related to the dental infection. Based on your exam, there is no indication that the infection has spread to the orbit of the eye. Continue taking your antibiotics as directed. Continue with the salt water rinses to encourage drainage of the abscess. Call today to schedule an appointment with a dentist at the next available appointment. Seek immediate medical attention in the emergency room if you develop fever greater than 100.5 F, have any eye pain, visual disturbances, increased swelling , or any worsening of symptoms. - Billing Disposition and Condition Condition: STABLE Disposition: Home - Attestation Statements Provider Attestation: Per institutional requirements, I have reviewed the chart, however, I was not consulted specifically or made aware of this patient by the midlevel provider. I did not personally evaluate, interact with , or disposition this patient.
== END 2018-08-26 13:17 | disposition home or self-care (01) ==
LOC: UCEAST 12:16
DX: K04.7 Periapical abscess without sinus (principal); L03.213 Periorbital cellulitis; F17.210 Nicotine dependence, cigarettes, uncomplicated; J45.909 Unspecified asthma, uncomplicated; Z88.0 Allergy status to penicillin; Z88.1 Allergy status to other antibiotic agents; Z91.09 Other allergy status, other than to drugs and biological substances
CPT/HCPCS: 99211; G0463

== ENCOUNTER 2018-10-09 09:51 | Emergency (ER) | payer OTHER ==
[2018-10-09 12:36] VITALS: BP 125/67
--- NOTE | 2018-10-09 13:00 | UC ---
Lower Extremity/Ankle HPI - HPI Summary HPI Summary: 48 YO p/w c/o LLE swelling > RLW since starting LExapro 2 days go for her perimenapusal sx of anxiety/depression. Started with 20mg, and called her doctor who told her to decrease the dose to 10mg. Denies any starting any other OTC meds or supplements, changes in diet, but she is a smoker and wonders if this is related to her LE "skin mottled appearance" for which she was told by her PCP to be "Raynauds's?' Denies any other medical problems - History of Current Complaint Chief Complaint: UCGeneralIllness Stated Complaint: LT NUMBNESS/PAIN Time Seen by Provider: 10/09/18 12:04 Hx Last Menstrual Period: 10/03/18 ?: Yes Pain Intensity: 8 - Allergies/Home Medications Allergies/Adverse Reactions: Allergies Allergy/AdvReac Type Severity Reaction Status Date / Time azithromycin Allergy Severe Rash Verified 10/09/18 10:12 ciprofloxacin Allergy Severe Rash Verified 10/09/18 10:12 iodine Allergy Severe Rash Verified 10/09/18 10:12 Penicillins Allergy Severe Rash Verified 10/09/18 10:12 avoids NSAIDS AdvReac See Comment Uncoded 10/09/18 10:12 Home Medications: Home Medications Escitalopram * [Lexapro 20 mg (NF)] 10 mg PO DAILY 10/09/18 [History Confirmed 10/09/18] PMH/Surg Hx/FS Hx/Imm Hx - Surgical History Surgical History: Yes Surgery Procedure, Year, and Place: 3 C-SECTIONS, TUBAL LIGATION 2003, CHOLECYSTECTOMY 2018 - Family History Known Family History: Positive: Hypertension, Diabetes - Social History Alcohol Use: None Substance Use Type: None Smoking Status (MU): Current Every Day Smoker Type: Cigarettes Amount Used/How Often: 5 CIG/DAY Length of Time of Smoking/Using Tobacco: 29 Years Have You Smoked in the Last Year: Yes Household Exposure Type: Cigarettes - Immunization History Most Recent Influenza Vaccination: 2016 Review of Systems All Other Systems Reviewed And Are Negative: Yes - Comments Additional Review of Systems Comments: Constitutional: Negative Skin: LLE swelling Eyes: Negative ENT: Negative Cardiovascular: Negative Respiratory: Negative Gastrointestinal: Negative Genitourinary: Negative Musculoskeletal: Negative Neurological: Negative Psychological: Normal All Other Systems Reviewed And Are Negative: Yes Physical Exam - Summary Physical Exam Summary: Vital Signs Reviewed: Yes Appearance: Positive: No Pain Distress Skin: Positive: Warm Head/Face: Positive: Normal Head/Face Inspection Eyes: Positive: Normal ENT: Positive: Normal ENT inspection Neck: Positive: Supple Respiratory/Lung Sounds: Positive: Clear to Auscultation. Negative: Rales, Rhonchi, Wheezes Cardiovascular: Positive: Normal, RRR, S1, S2 Abdomen Description: Positive: Nontender Musculoskeletal: Positive: Normal EXT: MINIMAL difference in size between LLE and RLE, NO pitting edema, NVI Neurological: Positive: Normal, CN Intact II-III Psychiatric: Positive: Normal, Affect/Mood Appropriate Vital Signs: Initial Vital Signs Temp 37.0 C 10/09/18 10:06 Pulse 99 10/09/18 10:06 Resp 18 10/09/18 10:06 BP 119/69 10/09/18 10:06 Pulse Ox 99 10/09/18 10:06 Lower Extremity Course/Dx - Course Course Of Treatment: NEG stigmata for HF, no new changes in habits except for starting Lexaprop mparesthesia is ONE of adverse effects of Lexapro, so advised pt to f/u PCP to consider another medication in the SSRI class OR to start another class of abx - Differential Dx/Diagnosis Provider Diagnosis: Medication adverse effect Discharge - Sign-Out/Discharge Documenting (check all that apply): Patient Departure All imaging exams completed and their final reports reviewed: No Studies - Discharge Plan Condition: Stable Disposition: HOME Patient Education Materials: Adverse Drug Reaction (ED) Referrals: Adam Sanchez MD [Primary Care Provider] - Additional Instructions: PLEASE FOLLOW UP WITH YOUR PCP ABOUT SWITCHING OVER TO ANOTHER ANTI DEPRESSANT DUE TO SIDE EFFECT PROFILE - Billing Disposition and Condition Condition: STABLE Disposition: Home
== END 2018-10-09 12:57 | disposition home or self-care (01) ==
LOC: UCEAST 09:51
DX: R22.42 Localized swelling, mass and lump, left lower limb (principal); T50.905A Adverse effect of unspecified drugs, medicaments and biological substances, initial encounter; F17.210 Nicotine dependence, cigarettes, uncomplicated; Z88.1 Allergy status to other antibiotic agents; Z88.0 Allergy status to penicillin; Z88.8 Allergy status to other drugs, medicaments and biological substances; Y92.9 Unspecified place or not applicable
CPT/HCPCS: 99211; G0463

== ENCOUNTER 2018-12-05 10:18 | Emergency (ER) | payer OTHER ==
[2018-12-05 10:39] VITALS: BP 130/83
--- NOTE | 2018-12-05 10:42 | UC ---
Throat Pain/Nasal [place] HPI - HPI Summary HPI Summary: 48 yo female presents with right ear pain and decreased hearing for the last 4 days - getting progressively worse. She also mentions that she has been having some sinus congestion over the last week with yellow/green nasal discharge. She has been taking tylenol OTC with little relief of her discomfort. She denies trauma to the ear or FB within her ear. Denies fever, sore throat, cough. - History of Current Complaint Chief Complaint: UCGeneralIllness Stated Complaint: EAR ACHE Time Seen by Provider: 12/05/18 10:41 Hx Obtained From: Patient Hx Last Menstrual Period: 12/02/18 Onset/Duration: Gradual Onset Severity: Severe Pain Intensity: 8 Pain Scale Used: 0-10 Numeric - Allergies/Home Medications Allergies/Adverse Reactions: Allergies Allergy/AdvReac Type Severity Reaction Status Date / Time azithromycin Allergy Severe Rash Verified 12/05/18 10:32 ciprofloxacin Allergy Severe Rash Verified 12/05/18 10:32 iodine Allergy Severe Rash Verified 12/05/18 10:32 Penicillins Allergy Severe Rash Verified 12/05/18 10:32 avoids NSAIDS AdvReac See Comment Uncoded 12/05/18 10:32 PMH/Surg Hx/FS Hx/Imm Hx GI/ History: Gastroesophageal Reflux Psychological History: Anxiety, Depression - Surgical History Surgical History: Yes Surgery Procedure, Year, and Place: 3 C-SECTIONS, TUBAL LIGATION 2003, CHOLECYSTECTOMY 2018 - Family History Known Family History: Positive: Hypertension, Diabetes - Social History Lives: With Family Alcohol Use: None Substance Use Type: None Smoking Status (MU): Former Smoker Type: Cigarettes Amount Used/How Often: 5 CIG/DAY Length of Time of Smoking/Using Tobacco: 29 Years Have You Smoked in the Last Year: Yes When Did the Patient Quit Smoking/Using Tobacco: 2016 Household Exposure Type: Cigarettes - Immunization History Most Recent Influenza Vaccination: 2016 Review of Systems All Other Systems Reviewed And Are Negative: Yes Constitutional: Positive: Negative Skin: Positive: Negative Eyes: Positive: Negative ENT: Positive: Ear Ache, Sinus Congestion Respiratory: Positive: Negative Cardiovascular: Positive: Negative Gastrointestinal: Positive: Negative Neurovascular: Positive: Negative Neurological: Positive: Negative Psychological: Positive: Negative Physical Exam - Summary Physical Exam Summary: GENERAL: NAD. WDWN. No pain distress. SKIN: No rashes, sores, lesions, or open wounds. HEENT: Head: AT/NC Eyes: EOM intact. Conjunctiva clear without inflammation or discharge. Ears: Hearing grossly normal. RIGHT TM with moderate erythema and bulging. TM appears intact. Mild white purulent drainage with mild canal edema. LEFT TM and ear canal WNL. Nose: Nasal mucosa pink and moist. NTTP maxillary and frontal sinus. Throat: Posterior oropharynx without exudates, erythema, or tonsillar enlargement. Uvula midline. NECK: Supple. Nontender. No lymphadenopathy. CHEST: CTAB. No r/r/w. No accessory muscle use. Breathing comfortably and in no distress. CV: RRR. Without m/r/g. Pulses intact. NEURO: Alert. PSYCH: Age appropriate behavior. Triage Information Reviewed: Yes Vital Signs: Initial Vital Signs Temp 97 F 12/05/18 10:34 Pulse 91 12/05/18 10:34 Resp 16 12/05/18 10:34 BP 130/83 12/05/18 10:34 Pulse Ox 99 12/05/18 10:34 Vital Signs Reviewed: Yes Throat Pain/Nasal Course/Dx - Course Course Of Treatment: Right otitis media and otitis externa - Differential Dx/Diagnosis Provider Diagnosis: Otitis media, Otitis externa Discharge - Sign-Out/Discharge Documenting (check all that apply): Patient Departure All imaging exams completed and their final reports reviewed: No Studies - Discharge Plan Condition: Stable Disposition: HOME Prescriptions: Cefdinir [Cefdinir 300 MG CAP] 300 mg PO BID #14 cap Ofloxacin 0.3% (Ear Drop)* [Floxin 0.3% OTIC.ROBERTO (Ear Drop)] 5 drop RIGHT EAR BID #1 btl Patient Education Materials: Otitis Externa (ED), Ear Infection (ED) Referrals: Adam Sanchez MD [Primary Care Provider] - Additional Instructions: If you develop a fever, shortness of breath, chest pain, new or worsening symptoms - please call your PCP or go to the ED immediately. Your blood pressure was high at todays visit. Please see your primary provider within 4 weeks for recheck and re-evaluation. - Billing Disposition and Condition Condition: STABLE Disposition: Home
== END 2018-12-05 11:06 | disposition home or self-care (01) ==
LOC: UCEAST 10:18
DX: H66.91 Otitis media, unspecified, right ear (principal); H60.91 Unspecified otitis externa, right ear; R09.81 Nasal congestion; Z88.6 Allergy status to analgesic agent; Z88.1 Allergy status to other antibiotic agents; Z88.3 Allergy status to other anti-infective agents; Z88.0 Allergy status to penicillin; Z87.891 Personal history of nicotine dependence
CPT/HCPCS: 99212; G0463

== ENCOUNTER 2018-12-22 10:31 | Emergency (ER) | payer OTHER ==
[2018-12-22 12:15] VITALS: BP 123/82
--- NOTE | 2018-12-22 14:53 | ED ---
Throat Pain/Nasal Congestion - HPI Summary HPI Summary: Patient is a 48-year-old female who presents emergency department for ongoing right ear pressure. Patient has been seen by [facility] twice and her family doctor once for comfort and pressure to her right ER. Pt. notes she has been on 2 rounds of Omnicef and is also been treated with Flonase, Zyrtec D she then went to her family doctor because her symptoms persisted and was switched to Doxycycline and to take sudafed. Pt. states today her hearing worsened and feels muffled on the right. Sxs are mild in severity. No current modifying factors. No significant past medical hx. Daily smoker. - History of Current Complaint Chief Complaint: EDEarPain Time Seen by Provider: 12/22/18 11:01 Hx Obtained From: Patient - Allergies/Home Medications Allergies/Adverse Reactions: Allergies Allergy/AdvReac Type Severity Reaction Status Date / Time azithromycin Allergy Severe Rash Verified 12/22/18 10:44 ciprofloxacin Allergy Severe Rash Verified 12/22/18 10:44 iodine Allergy Severe Rash Verified 12/22/18 10:44 Penicillins Allergy Severe Rash Verified 12/22/18 10:44 avoids NSAIDS AdvReac See Comment Uncoded 12/09/18 11:00 Home Medications: Home Medications Doxycycline Hyclate 100 mg PO BID 12/22/18 [History Confirmed 12/22/18] guaiFENesin [Mucinex] 600 mg PO BID 12/22/18 [History Confirmed 12/22/18] PMH/Surg Hx/FS Hx/Imm Hx Previously Healthy: Yes Endocrine/Hematology History: Denies: Hx Thyroid Disease, Other Endocrine/Hematological Disorders Cardiovascular History: Reports: Other Cardiovascular Problems/Disorders - Dyslipidemeia Denies: Hx Hypertension Respiratory History: Reports: Hx Asthma Denies: Other Respiratory Problems/Disorders GI History: Reports: Hx Gastroesophageal Reflux Disease - pantoprazole, Hx Ulcer - possible, Other GI Disorders - Epigastric pain, gallstones History: Reports: Other Problems/Disorders - UTI, currently being treated with macrodantin Denies: Hx Kidney Stones Musculoskeletal History: Reports: Other Musculoskeletal History - lower back pain, states due to UTI Sensory History: Denies: Hx Contacts or Glasses, Hx Hearing Aid, Other Sensory Impairments Opthamlomology History: Denies: Hx Contacts or Glasses, Other Sensory Impairments Neurological History: Reports: Hx Migraine - Takes tylenol for migraine Denies: Other Neuro Impairments/Disorders Psychiatric History: Reports: Hx Anxiety - on medication, Hx Depression - on medication, Hx Panic Disorder Denies: Other Psychiatric Issues/Disorders - Surgical History Surgery Procedure, Year, and Place: 3 C-SECTIONS, TUBAL LIGATION 2004, CHOLECYSTECTOMY 2018 Hx Anesthesia Reactions: No Infectious Disease History: No Infectious Disease History: Denies: History Other Infectious Disease, Traveled Outside the [place] in Last 30 Days - Family History Known Family History: Positive: Hypertension, Diabetes, Non-Contributory - Social History Occupation: Unemployed Lives: With Family Alcohol Use: None Substance Use Type: Reports: None Smoking Status (MU): Light Every Day Tobacco Smoker Type: Cigarettes Amount Used/How Often: 5 CIG/DAY Length of Time of Smoking/Using Tobacco: 29 Years Have You Smoked in the Last Year: Yes Review of Systems Constitutional: Negative Negative: Fever, Chills Eyes: Negative Positive: Ear Ache. Negative: Sore Throat Cardiovascular: Negative Respiratory: Negative Negative: Cough Neurological: Negative All Other Systems Reviewed And Are Negative: Yes Physical Exam Triage Information Reviewed: Yes Vital Signs On Initial Exam: Initial Vitals Temp Pulse Resp BP Pulse Ox 97.3 F 91 16 138/83 99 12/22/18 10:42 12/22/18 10:42 12/22/18 10:42 12/22/18 10:42 12/22/18 10:42 Vital Signs Reviewed: Yes Appearance: Positive: Well-Appearing - Pt. sitting up in bed in NAD. Skin: Positive: Warm, Dry Head/Face: Positive: Normal Head/Face Inspection Eyes: Positive: Normal, EOMI, JT ENT: Positive: Pharynx normal, Other - Left TM and canal unremarkable. Cannot visualize left TM secondary to cerumen. No mastoid tenderness. External canal unremarkable. Neck: Positive: Supple Respiratory/Lung Sounds: Positive: Clear to Auscultation, Breath Sounds Present Cardiovascular: Positive: Normal, RRR Neurological: Positive: Normal, CN Intact II-III Psychiatric: Positive: Affect/Mood Appropriate Procedures - Procedure Summary Procedure Summary: Ear flush: Right ear was flushed with warm water and H2O2. Cerumen was easily removed. Pt. tolerated well. Diagnostics - Vital Signs Vital Signs Temp Pulse Resp BP Pulse Ox 12/22/18 12:14 97.3 F 81 19 123/82 98 12/22/18 10:42 97.3 F 91 16 138/83 99 - Laboratory Lab Statement: Any lab studies that have been ordered have been reviewed, and results considered in the medical decision making process. EENT Course/Dx - Course Course Of Treatment: Pt. presenting for sxs of likely allergic rhinitis, serous otitis media. She does have cerumen to right ear which was easily removed with flushing. TM now visual and shows fluid level without erythema. Pt. feeling better. Advised to continue flonase and decongestant. To f.u with PCP for ENT referral if sxs persist. Pt. understands and agrees with plan. - Differential Diagnoses Differential Diagnoses: Cerumen Impaction, Otitis Externa, Otitis Media - Diagnoses Provider Diagnoses: Cerumen impaction, Serous otitis media Discharge - Sign-Out/Discharge Documenting (check all that apply): Patient Departure Patient Received Moderate/Deep Sedation with Procedure: No - Discharge Plan Condition: Improved Disposition: HOME Patient Education Materials: Cerumen Impaction (ED), Allergic Rhinitis (ED), Serous Otitis Media (ED) Referrals: Asael Mcarthur MD [Medical Doctor] - Adam Sanchez MD [Primary Care Provider] - Additional Instructions: Follow up with PCP for ENT referral if symptoms persist Continue prescribed medications Avoid using Q-tips in ears Return to ER if symptoms change or worsen - Billing Disposition and Condition Condition: IMPROVED Disposition: Home
== END 2018-12-22 12:14 | disposition home or self-care (01) ==
LOC: ED 10:31
DX: H65.91 Unspecified nonsuppurative otitis media, right ear (principal); H92.09 Otalgia, unspecified ear; H61.21 Impacted cerumen, right ear
CPT/HCPCS: 69210; 99281

== ENCOUNTER 2019-03-23 19:58 | Emergency (ER) | payer OTHER ==
[2019-03-23 20:10] VITALS: BP 146/59
--- NOTE | 2019-03-23 20:22 | UC ---
UC Dental HPI - HPI Summary HPI Summary: 4 day history of pain upper molar with development of visible abscess, and pain persisting with regular use of acetaminophen. She has been resistant to calling her dentist; her boyfriend insisted that she come for assessment. - History of Current Complaint Chief Complaint: UCDentalProblem Stated Complaint: DENTAL COMPLAINT Time Seen by Provider: 03/23/19 20:14 Hx Obtained From: Patient Hx Last Menstrual Period: 02/3019 Onset/Duration: Gradual Onset, Lasting Days - 4 Severity: Moderate Pain Intensity: 8 Aggravating Factor(s): Cold, Chewing Alleviating Factor(s): OTC Meds Related History: Previous Dental Care on Same Tooth - Allergies/Home Medications Allergies/Adverse Reactions: Allergies Allergy/AdvReac Type Severity Reaction Status Date / Time azithromycin Allergy Severe Rash Verified 03/23/19 20:10 ciprofloxacin Allergy Severe Rash Verified 03/23/19 20:10 iodine Allergy Severe Rash Verified 03/23/19 20:10 Penicillins Allergy Severe Rash Verified 03/23/19 20:10 avoids NSAIDS AdvReac See Comment Uncoded 03/23/19 20:10 PMH/Surg Hx/FS Hx/Imm Hx Previously Healthy: Yes GI/ History: Gastroesophageal Reflux Psychological History: Anxiety, Depression - Surgical History Surgical History: Yes Surgery Procedure, Year, and Place: 3 C-SECTIONS, TUBAL LIGATION 2003, CHOLECYSTECTOMY 2017 - Family History Known Family History: Positive: Hypertension, Diabetes, Non-Contributory - Social History 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 Alcohol Use: None Substance Use Type: None Smoking Status (MU): Light Every Day Tobacco Smoker Type: Cigarettes Amount Used/How Often: 5 CIG/DAY Length of Time of Smoking/Using Tobacco: 29 Years Have You Smoked in the Last Year: Yes When Did the Patient Quit Smoking/Using Tobacco: 2016 Household Exposure Type: Cigarettes - Immunization History Most Recent Influenza Vaccination: 2016 Review of Systems All Other Systems Reviewed And Are Negative: Yes Constitutional: Positive: Negative ENT: Positive: Dental Pain, Ear Ache Psychological: Positive: Anxious Is Patient Immunocompromised?: No Physical Exam Triage Information Reviewed: Yes Appearance: Well-Appearing, Pain Distress - moderate Vital Signs: Initial Vital Signs Temp 97.1 F 03/23/19 20:04 Pulse 104 03/23/19 20:04 Resp 20 03/23/19 20:04 BP 146/59 03/23/19 20:04 Pulse Ox 96 03/23/19 20:04 Eye Exam: Other - full EOM, no periorbital swelling Eyes: Positive: Conjunctiva Clear ENT: Positive: Pharynx normal, TMs normal Dental: Positive: Percussion Tenderness @ - 2, Abscess @ - 2. Negative: Cellulitis @, Cervical Lymphadenopathy Neck: Positive: Supple, Nontender, No Lymphadenopathy Respiratory: Positive: Lungs clear, Normal breath sounds Cardiovascular: Positive: RRR, No Murmur Psychological Exam: Normal Skin Exam: Normal Images Dental: 1 - missing 2 - erythematous gum with abscess formation, tooth is loose and tender to percussion Dental Complaint Course/Dx - Course Course Of Treatment: clindamycin for treatment of dental infection, with continued use of acetaminophen for pain control. She will seek dental consultation this week. - Differential Dx/Diagnosis Differential Diagnosis/Dx: Dental Abscess, Dental Caries, Fractured Tooth Provider Diagnosis: Dental abscess Discharge ED - Sign-Out/Discharge Documenting (check all that apply): Patient Departure All imaging exams completed and their final reports reviewed: No Studies - Discharge Plan Condition: Good Disposition: HOME Prescriptions: Clindamycin Cap(NF) [Clindamycin Cap 300 mg Cap(NF)] 300 mg PO QID #28 cap Patient Education Materials: Dental Abscess (ED) Referrals: Adam Sanchez MD [Primary Care Provider] - Additional Instructions: Continue use of clindamycin for treatment of abscess while you seek dental care. Follow up with your dentaist as soon as possible for deninitive treatment of the abscess - Billing Disposition and Condition Condition: GOOD Disposition: Home
[2019-03-23] MEDS ORDERED: Clindamycin CAP* 150 MG PO ONE (20:23)
== END 2019-03-23 20:45 | disposition home or self-care (01) ==
LOC: UCEAST 19:58
DX: K04.7 Periapical abscess without sinus (principal); Z88.0 Allergy status to penicillin; Z88.1 Allergy status to other antibiotic agents; F17.210 Nicotine dependence, cigarettes, uncomplicated
CPT/HCPCS: 99212; A9270-GY; G0463